=== PATIENT | male | born 1945 | race Caucasian/White ===

== ENCOUNTER 2019-01-14 15:26 | Outpatient (CLI) | payer MEDICARE, SELFPAY ==
--- NOTE | 2019-01-14 11:30 | DI.RAD_ITS ---
SYMPTOMS/DIAGNOSIS: PRODUCTIVE COUGH X 1 MO, WEIGHT LOSS, R63.4 PA AND LATERAL CHEST: The lungs are well expanded and free of infiltrates. There is no pleural effusion. The cardiovascular structures are intact. Note is made of degenerative changes involving the mid and lower dorsal spine. SUMMARY: No evidence of cardiopulmonary disease.
== END 2019-01-14 15:46 ==
PROVIDERS: PCP Nurse Practitioner; Visit Provider Nurse Practitioner
DX: R05 Cough (principal); R63.4 Abnormal weight loss
CPT/HCPCS: 71046

== ENCOUNTER 2019-03-13 03:37 | Outpatient (CLI) | payer MEDICARE, SELFPAY ==
[2019-03-13 10:17] LABS: HCT 43.8 % (40.0-50.0); Mean Corpuscular Hemoglobin 31.4 pg (27.0-33.0); Mean Corpuscular Volume 98.2 fL (80-95); Mean Platelet Volume 9.6 fL (8.0-11.0); Platelet Count 181 x1000/uL (130-400); RBC 4.46 m/cumm (4.50-6.00); RBC Distribution Width 13.3 % (11.8-14.1); White Blood Cell Count 5.05 k/cumm (4.4-10.8)
[2019-03-13 10:30] LABS: COMMENT (LAB VIEW ONLY) 74.42 mg/dL; Microalb ug/mg Crea 4.7 ug/mg Cr
[2019-03-13 11:03] LABS: Hemoglobin A1C 6.4 % (4.5-6.2)
[2019-03-13 11:04] LABS: ALT 24 U/L (12-78); AST 17 U/L (15-37); Albumin 3.4 g/dL (3.4-5.0); Alkaline Phosphatase 53 U/L (46-116); Anion Gap 8.1 mmol/L (3-11); BUN 22 mg/dL (7-18); Bilirubin, Total 0.5 mg/dL (0.2-1.0); CO2 27.9 mmol/L (21.0-32.0); CREATININE 1.03 mg/dL (0.70-1.30); Calcium 8.8 mg/dL (8.5-10.1); Chloride 105 mmol/L (98-107); Cholesterol 135 mg/dL (50-200); Glucose 115 mg/dL (70-100); HDL Cholesterol 47 mg/dL (40-60); LDL CHOLESTEROL 78 mg/dL (<100); Potassium 4.4 mmol/L (3.5-5.1); Sodium 141 mmol/L (136-145); Total Protein 6.3 g/dL (6.4-8.2); Triglyceride 39 mg/dL (30-150)
== END 2019-03-13 03:57 ==
PROVIDERS: PCP Nurse Practitioner; Visit Provider Nurse Practitioner
DX: E11.9 Type 2 diabetes mellitus without complications (principal); E78.00 Pure hypercholesterolemia, unspecified; I10 Essential (primary) hypertension; R73.03 Prediabetes
CPT/HCPCS: 36415; 80053; 80061; 83721; 85027; 82043; 82570; 83036

== ENCOUNTER 2019-12-17 14:44 | Outpatient (CLI) | payer MEDICARE, SELFPAY ==
--- NOTE | 2019-12-17 14:00 | DI.RAD_ITS ---
EXAM: XR KNEE RT 3V AP,LAT,ERNIE INDICATION: PAIN S/P FALL X 2 LANDING ON KNEE, 2 WEEKS AGO, W19.XXXA, PAIN RT KNEE. COMPARISON: No exams were available for comparison TECHNIQUE: 2D digital imaging was performed. FINDINGS: There is marked swelling of the prepatellar soft tissues. No acute or healing fracture or dislocatio n is identified. No joint effusion is present. IMPRESSION: 1. No acute fracture or dislocation. 2. Swelling of the prepatellar soft tissues.
== END 2019-12-17 15:04 ==
PROVIDERS: PCP Nurse Practitioner; Visit Provider Nurse Practitioner
DX: M25.561 Pain in right knee (principal); M79.89 Other specified soft tissue disorders; Z91.81 History of falling
CPT/HCPCS: 73562

== ENCOUNTER 2019-12-28 15:45 | Outpatient (CLI) | payer MEDICARE, SELFPAY ==
--- NOTE | 2019-12-28 15:30 | DI.RAD_ITS ---
EXAM: XR KNEE RT 1V CLINICAL HISTORY: fall with anterior patella swelling and pain TECHNIQUE: COMPARISON: XR KNEE RT 3V AP,LAT,ERNIE from 12/17/2019 FINDINGS: Merchant view only was obtained. The film is of poor technical quality and the cortex of the patella is not well visualized. Repeat film recommended. IMPRESSION:
--- NOTE | 2019-12-28 15:30 | DI.RAD_ITS ---
EXAM: XR TIB/FIB RT CLINICAL HISTORY: right leg swelling and pain TECHNIQUE: COMPARISON: XR KNEE RT 1V from 12/28/2019 FINDINGS: Two views were obtained. No bony abnormality seen involving the leg. IMPRESSION:
== END 2019-12-28 16:05 ==
PROVIDERS: PCP Nurse Practitioner; Referring Provider Nurse Practitioner; Visit Provider Student in an Organized Health Care Education/Training Program
DX: M70.41 Prepatellar bursitis, right knee; M25.461 Effusion, right knee; M79.604 Pain in right leg; R60.0 Localized edema
CPT/HCPCS: 99203; 99214; 73560; 73590

== ENCOUNTER 2020-06-29 03:22 | Outpatient (CLI) | payer MEDICARE, SELFPAY ==
[2020-06-29 08:55] LABS: ALT 37 U/L (16-63); AST 21 U/L (15-37); Albumin 3.8 g/dL (3.4-5.0); Alkaline Phosphatase 53 U/L (46-116); Anion Gap 3.4 mmol/L (3-11); BUN 21 mg/dL (7-18); Bilirubin, Total 0.5 mg/dL (0.2-1.0); CO2 29.6 mmol/L (21.0-32.0); CREATININE 0.99 mg/dL (0.70-1.30); Calculated LDL 89 mg/dL (<100); Chloride 109 mmol/L (98-107); Cholesterol 147 mg/dL (<200); Glucose 112 mg/dL (74-106); HDL Cholesterol 41 mg/dL (40-60); Potassium 4.2 mmol/L (3.5-5.1); Sodium 142 mmol/L (136-145); Total Protein 6.6 g/dL (6.4-8.2); Triglyceride 87 mg/dL (<150)
[2020-06-29 09:00] LABS: Hemoglobin A1C 6.5 % (3.8-5.6)
== END 2020-06-29 03:42 ==
PROVIDERS: PCP Nurse Practitioner; Visit Provider Family Medicine
DX: E11.9 Type 2 diabetes mellitus without complications (principal); I10 Essential (primary) hypertension; E78.5 Hyperlipidemia, unspecified
CPT/HCPCS: 36415; 80053; 80061; 83036

== ENCOUNTER 2021-07-25 10:46 | Outpatient (CLI) | payer MEDICARE, SELFPAY ==
--- NOTE | 2021-07-25 09:45 | DI.RAD_ITS ---
Exam(s) XR SHOULDER LT COMPLETE 2+V EXAM: XR SHOULDER LT COMPLETE 2+V CLINICAL HISTORY: left shoulder pain for about 2 months, M25.512. Full ROM.. TECHNIQUE: 2D digital imaging was performed of the left shoulder. Five images were obtained. AP, G rashey, Y-view and axillary views were obtained. COMPARISON: No exams were available for comparison FINDINGS: BONES: No acute fracture is present. No bony destructive lesion is seen. JOINTS: No dislocation present. Mild hypertrophic changes are seen at the acromioclavicular joint. SOFT TISSUE: Normal. IMPRESSION: Mild degenerative changes of the left shoulder. DATA REPOSITORY: RADIATION DOSE DELIVERED:
== END 2021-07-25 11:06 ==
PROVIDERS: PCP Nurse Practitioner; Visit Provider Nurse Practitioner
DX: M25.512 Pain in left shoulder (principal); M19.012 Primary osteoarthritis, left shoulder
CPT/HCPCS: 73030

== ENCOUNTER 2021-07-27 01:45 | Outpatient (CLI) | payer MEDICARE, SELFPAY ==
[2021-07-27 08:47] LABS: ALT 38 U/L (16-63); AST 23 U/L (15-37); Albumin 3.7 g/dL (3.4-5.0); Alkaline Phosphatase 53 U/L (46-116); Anion Gap 6.8 mmol/L (3-11); BUN 17 mg/dL (7-18); Bilirubin, Total 0.4 mg/dL (0.2-1.0); CO2 29.2 mmol/L (21.0-32.0); CREATININE 1.1 mg/dL (0.70-1.30); Calcium 9.1 mg/dL (8.5-10.1); Calculated LDL 88 mg/dL (<100); Chloride 107 mmol/L (98-107); Cholesterol 143 mg/dL (<200); Glucose 112 mg/dL (74-106); HDL Cholesterol 38 mg/dL (40-60); Potassium 4.7 mmol/L (3.5-5.1); Sodium 143 mmol/L (136-145); Total Protein 6.6 g/dL (6.4-8.2); Triglyceride 85 mg/dL (<150)
[2021-07-27 17:41] LABS: PSA, Screening 4.7 ng/mL (0.0-6.5)
== END 2021-07-27 01:46 | disposition home or self-care (01) ==
LOC: LBO 01:45
PROVIDERS: PCP Nurse Practitioner; Visit Provider Nurse Practitioner
DX: I10 Essential (primary) hypertension (principal); E78.00 Pure hypercholesterolemia, unspecified; E66.3 Overweight; N40.0 Benign prostatic hyperplasia without lower urinary tract symptoms; Z12.5 Encounter for screening for malignant neoplasm of prostate
CPT/HCPCS: 36415; 80053; 80061; 84153

== ENCOUNTER 2022-07-10 02:06 | Outpatient (CLI) | payer MEDICARE, SELFPAY ==
[2022-07-10 08:52] LABS: Abs Immature Grans 0.01 10^3/uL (0.0-0.06); Absolute Basophil Count 0.04 10^3/uL (0.0-0.2); Absolute Eosinophil Count 0.39 10^3/uL (0.0-0.7); Absolute Monocyte Count 0.41 10^3/uL (0.1-0.8); Absolute Neutrophil Count 3.13 10^3/uL (1.2-6.7); Basophils % 0.8; Eosinophils % 7.7; HCT 44.6 % (40.0-50.0); HGB 14.8 g/dL (13.5-17.5); Immature Grans % 0.2; Lymphocytes % 21.7; MCHC 33.2 % (32.0-36.0); MCV 96 fL (80-95); MPV 9.9 fL (8.0-11.0); Monocytes % 8.1; Neutrophils % 61.5; Platelet Count 159 10^3/uL (130-400); RBC 4.63 10^6/uL (4.36-5.78); RDW 12.6 % (11.8-14.1); WBC 5.08 10^3/uL (4.4-10.8)
[2022-07-10 09:04] LABS: Hemoglobin A1C 6.3 % (<5.7)
[2022-07-10 09:27] LABS: ALT 26 U/L (16-63); AST 16 U/L (15-37); Albumin 3.7 g/dL (3.4-5.0); Alkaline Phosphatase 49 U/L (46-116); Anion Gap 7.9 mmol/L (3-11); BUN 22 mg/dL (7-18); Bilirubin, Total 0.4 mg/dL (0.2-1.0); CO2 30.1 mmol/L (21.0-32.0); CREATININE 1.2 mg/dL (0.70-1.30); Calculated LDL 74 mg/dL (<100); Chloride 107 mmol/L (98-107); Cholesterol 132 mg/dL (<200); Estimated GFR 63.46 (mL/min/1.73m2); Glucose 124 mg/dL (74-106); HDL Cholesterol 43 mg/dL (40-60); Potassium 4.5 mmol/L (3.5-5.1); Sodium 145 mmol/L (136-145); Triglyceride 77 mg/dL (<150)
== END 2022-07-10 02:07 | disposition home or self-care (01) ==
LOC: LBO 02:06
PROVIDERS: PCP Nurse Practitioner; Visit Provider Nurse Practitioner
DX: I10 Essential (primary) hypertension (principal); E78.00 Pure hypercholesterolemia, unspecified; R73.03 Prediabetes; J45.909 Unspecified asthma, uncomplicated; E66.3 Overweight
CPT/HCPCS: 36415; 80053; 80061; 83036; 85025

== ENCOUNTER 2022-07-16 09:21 | Emergency (ER) | payer MEDICARE, SELFPAY ==
[2022-07-16 09:25] VITALS: BP 118/78; PULSE 70; RESP 18; TEMP 36.3; O2SAT 97
--- NOTE | 2022-07-16 09:52 | ED.GENADUL_ITS ---
Discharge Plan Disposition Patient Disposition: HOME Condition: Stable Discharge Details Clinical Impression: Nausea vomiting and diarrhea Primary Care Provider: Shana Alvarez ED Provider: Lu Reeves Home Meds and New Rx's Prescriptions: Continued cholecalciferol (vitamin D3) [Vitamin D3] 25 mcg (1,000 unit) capsule 1,000 unit PO DAILY Qty: 100 6RF Rx Instructions: Vitamin D supplement atorvastatin 20 mg tablet 20 mg PO DAILY Qty: 90 3RF metoprolol succinate 100 mg tablet extended release 24 hr 100 mg PO DAILY Qty: 90 3RF aspirin [Aspir-81] 81 MG tablet,delayed release (DR/EC) 81 mg PO DAILY Rx Instructions: due to cardiovascular risk and paroxysmal A Fib omeprazole 20 mg tablet,delayed release (DR/EC) 20 mg PO DAILY PRN (Reason: GERD) Qty: 90 3RF Rx Instructions: for persistant GERD ibuprofen 600 mg tablet 600 mg PO QID PRN (Reason: pain) Qty: 120 3RF tamsulosin 0.4 mg capsule See Rx Instructions .ROUTE .COMPLEX Qty: 90 3RF Dose Instruction: TAKE ONE CAPSULE BY MOUTH EVERY DAY FOR BLADDER SYMPTOMS Rx Instructions: TAKE ONE CAPSULE BY MOUTH EVERY DAY FOR BLADDER SYMPTOMS Discharge Instructions Instructions: Acute Nausea and Vomiting (ED) Additional Instructions: Your symptoms may be associated with some something that you ate or virus. Please continue to encourage hydration. You may advance your diet as tolerated. Please continue to quarantine until your COVID results are back, we will call you with these results as soon as possible. If you develop fever/chills, chest pain, shortness of breath, inability stay hydrated or other new/worsening symptoms please seek care urgently once again. Please keep upcoming appointment with your primary care Referrals: Shana Alvarez, [facility] [Primary Care Provider] - Medical Decision Making Patient is a pleasant 76-year-old male presents today with chief complaint of nausea, vomiting and diarrhea. He reports that he had 2 episodes of emesis and 2 episodes of watery bowel movement yesterday. All of this is nonbloody. Came on after eating pizza. Denies anybody else being sick after eating this. Denies any chest pain, shortness of breath. No fevers or chills. Denies any abdominal pain. No previous bowel surgery. He has not had any nausea or diarrhea today. However, has been hesitant to eat anything as he is afraid that he may have recurrence of his GI upset. Reports that he is very active, with active jaron yesterday and did not have any correlation with his activity, no chest pain. Past medical history is pertinent for hypercholesterolemia, hypertension, prediabetes, paroxysmal atrial fibrillation, GERD. On exam, patient appears nontoxic. Vital signs are stable. Abdomen is benign. Lungs are clear. Patient sounds to be in normal sinus rhythm at this time. Patient's primary concern is potential COVID, particularly at the significant other's vehicle high risk should she contract the illness. However, he does report he is wearing mask, is up-to-date on immunizations. Will complete a send out test. Patient was able to drink water and take his medications this morning. We will send out a COVID test now. We will also p.o. challenge him to ensure he is able to tolerate this. Patient is very active and has no exertional symptoms, I do not believe his nausea and vomiting is associated with ACS. He appears well-hydrated. Is likely associated with something that he ate. He has not had any recent antibiotics. His symptoms overall sound quite low risk and nonemergent. We will ensure that he is able to tolerate p.o. and plan to discharge home. Patient tolerated p.o. challenge well. No recurrent nausea or vomiting. Patient has had no sxs, tolerating PO well now. Send out covid test pending. Encouraged hydration. Discussed supportive care. Discussed supportive care. Advised he continue to quarantine until covid testing is return. All of his quesitons and concerns were addressed, he is in agreement with this plan. Advised f/u with PCP in the next week for reevaluation. All of his quesitons and concerns were addressed, eh is in agreement with this plan. HPI General Date/Time Provider Initiated Documentation: 07/16/22 09:52 . Limitations to Documentation: no limitations . Information obtained by: patient and RN notes reviewed . History of Present Illness 76 year old M presents to the emergency department with the chief complaint of nausea, vomiting, diarrhea, described as moderate, Quality is described as other (denies any pain, only experiences some churning yesterday in abdomen), and is localized to the abdomen. Patient reports no radiation. Patient started experiencing this day(s) (1) and it has been now resolved. No relieving factors improve symptom(s), Eating worsens symptoms (came on afte r eating yestwrday, none today) . Patient notes no other symptoms. and nausea/vomiting; denies chest pain, cough, diaphoresis, fever/chills, malaise and shortness of breath. Patient did receive the following treatments prior to arrival, none Related Data Home Medications Medication Instructions Recorded Confirmed aspirin 81 mg tablet,delayed 81 mg PO DAILY 08/07/16 07/16/22 release (Aspir-) cholecalciferol (vitamin D3) 25 1,000 unit PO DAILY #100 tab-caps 12/17/19 07/16/22 mcg (1,000 unit) capsule (Vitamin D3) atorvastatin 20 mg tablet 20 mg PO DAILY #90 tabs 07/17/21 07/16/22 metoprolol succinate 100 mg 100 mg PO DAILY #90 tabs 07/17/21 07/16/22 tablet,extended release 24 hr omeprazole 20 mg tablet,delayed 20 mg PO DAILY PRN GERD #90 tabs 09/11/21 07/16/22 release ibuprofen 600 mg tablet 600 mg PO QID PRN pain #120 tabs 12/11/21 07/16/22 tamsulosin 0.4 mg capsule See Rx Instructions .Route 01/08/22 07/16/22 .COMPLEX #90 caps Previous Rx's Medication Instructions Recorded cholecalciferol (vitamin D3) 25 1,000 unit PO DAILY #100 tab-caps 12/17/19 mcg (1,000 unit) capsule (Vitamin D3) atorvastatin 20 mg tablet 20 mg PO DAILY #90 tabs 07/17/21 metoprolol succinate 100 mg 100 mg PO DAILY #90 tabs 07/17/21 tablet,extended release 24 hr omeprazole 20 mg tablet,delayed 20 mg PO DAILY PRN GERD #90 tabs 09/11/21 release ibuprofen 600 mg tablet 600 mg PO QID PRN pain #120 tabs 12/11/21 tamsulosin 0.4 mg capsule See Rx Instructions .Route 01/08/22 .COMPLEX #90 caps Allergies Allergy/AdvReac Type Severity Reaction Status Date / Time No Known Allergies Allergy Verified 07/16/22 09:30 General Stated Complaint: Nausea/Vomit/Diar MAYRA: 3 Review of Systems Constitutional Constitutional: Reports as per HPI, Denies chills, Denies fatigue and Denies fever(s) Cardiovascular Cardiovascular: Reports as per HPI, Denies chest pain and Denies dyspnea Respiratory Respiratory: Reports as per HPI, Denies cough and Denies dyspnea Gastrointestinal Gastrointestinal: Reports as per HPI Genitourinary Genitourinary: Denies system reviewed and no additional complaints, except as documented (patient denies any change in urinary habits) Musculoskeletal Musculoskeletal: Reports as per HPI and Denies back pain Integumentary/Breasts Skin/Breast: Reports as per HPI and Denies rash Neurologic Neurologic: Reports as per HPI Endocrine Endocrine: Denies fatigue PFSH All Active Problems (Updated 07/16/22 @ 12:03 by AME Tobias) Nausea vomiting and diarrhea (Acute) Left shoulder pain (Acute) Screening for prostate cancer (Acute) Bursitis, prepatellar, right (Acute) Leg edema, right (Acute) Fall (Acute) Overweight with body mass index (BMI) 25.0-29.9 (Acute 12/25/11) Calculus of left kidney (Acute 07/24/15) Chest pain (Acute 04/08/14) High density lipoprotein (HDL) less than 40 mg/dL (Acute 11/04/08) Elevated cholesterol (Chronic) HTN (hypertension) (Chronic) Prostatism (Acute 10/26/13) slow flow Pre-diabetes (Acute 02/25/18) Paroxysmal atrial fibrillation (Acute 06/04/14) paroxysmal A Fib detected at ETT (neg ischemia); US: diffuse hypo, 40-45%, mild MR; CHADS2-VASC SCORE 1 (09/2014); Holter no A Fib 12/19; ECHO 02/2015 nl EF, no MR; non-sustained VT & no A Fib on CER ( hypertension ([place]ischke) Non-sustained ventricular tachycardia (Acute 10/09/16) ? 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; 09/07/16 Neg colonoscopy Thiago; rpt 10 yr Low HDL (under 40) (Acute 11/04/08) LOW HDL 38; RISK 9% CALCULATED 2008; LDL only 89 (2014) IFG (impaired fasting glucose) (Acute 02/25/18) Hyperlipidemia (Acute 11/04/08) LDL 152 off meds; LOW HDL 38; RISK 9% CALCULATED 2008; Statin begun 07/2014 Hyperkeratotic hand dermatitis (Acute 09/21/14) bilat HYPOTHENAR Generalized osteoarthrosis (Acute 12/25/11) JENISE R KNEE; S/P R HIP REPLACEMENT 2009 [place] Gastroesophageal reflux disease without esophagitis (Acute 10/19/10) EGD 10/19/10 consistent with GERD Overweight with body mass index (BMI) 25.0-29.9 (Acute 12/25/11) BMI 32.0-32.9,adult (Acute 10/09/16) Medical History (Updated 07/16/22 @ 12:03 by AME Tobias) GERD (gastroesophageal reflux disease) Hyperlipidemia Neoplasm of large intestine Obesity Paroxysmal atrial fibrillation Surgical History Colonoscopy - IV Sedation (09/07/16) EGD - MAC (10/19/10) Extraction of cataract (10/04/08) BILATERAL DR MATTA Total replacement of hip (08/23/10) R HIP [place] Family History Mother , CVA at age 84. Myocardial infarction Stroke Parkinson's disease Father , ACCIDENT at age 29. No problems noted. Son Age: 52 Diabetes 44 Son No problems noted. Other Heart disease Social History (Updated 01/17/21 @ 08:42 by Neelam Mccabe LPN) Smoking/Tobacco Use Status: Former Tobacco Use Quit Date: 11/04/76 Pack-years: 50 Tobacco: How many years used: 20 Smoking risk assessment performed?: Yes Alcohol Intake: current Alcohol Intake frequency: a few times a month Drug use: Never Substance use type: does not use Housing: house Number of Children: 2 number of grandchildren: 4 current occupation: retired from factory work and carpentry, and autobody Current gender identity: male What is your relationship status?: Panel score (0-1 are the most socially isolated patients): 0 What type of physical activity do you participate in: none Seatbelt use: always Drive intox or ride w/intox professional driver: No Working smoke detector in home: Yes Fire extinguisher in home: Yes Carbon monox detector in home: Yes Do you feel safe at home: Yes Do you feel safe in your relationship?: Yes Exam Const General: cooperative, healthy appearing, comfortable, no acute distress and well developed Nutritional Appearance: average body habitus and well nourished Orientation: alert and awake [facility] Head: normal to inspection Mouth: moist mucous membranes Resp Effort & Inspection: normal respiratory effort, able to speak in complete sent ences and no respiratory distress Auscultation: clear to auscultation bilaterally, no rales, no rhonchi and no wheezes Cardio Rate: regular rate Rhythm: regular rhythm Heart Sounds: S1 normal and S2 normal GI Inspection: normal to inspection Palpation: soft, no hepatosplenomegaly, no guarding, not rigid, nontender and No ascites Percussion: normal to percussion Skin General skin exam: no rashes or lesions noted Trauma: no lacerations or abrasions Neuro General: patient alert and patient awake Cognition: normal cognition Speech: speech normal Gait: normal gait Psych Appearance: grossly normal and well kempt Mental Status: mental status grossly normal Speech and Movement: speech and movement normal Course Vital Signs Vital signs: Vital Signs Temperature 36.3 C L 07/16/22 09:25 Pulse 70 07/16/22 09:25 Respiratory Rate 18 07/16/22 09:25 Blood Pressure 118/78 07/16/22 09:25 Pulse Oximetry 97 07/16/22 09:25 Temperature 36.3 C L 07/16/22 09:25 Temperature Source Temporal Artery Scan 07/16/22 09:25 Pulse 70 07/16/22 09:25 Respiratory Rate 18 07/16/22 09:25 Respiratory Effort Non-Labored 07/16/22 09:30 Blood Pressure 118/78 07/16/22 09:25 Blood Pressure Position Supine 07/16/22 09:25 Pulse Oximetry 97 07/16/22 09:25 Oxygen Delivery Method Room Air 07/16/22 09:25 Oxygen Flow Rate 0 07/16/22 09:25 PAWSS Have you Been Recently Intoxicated or Drunk Within the Last 30 days?: No Have you Ever Experienced Previous Episodes of Alcohol Withdrawal?: No Have you ever Experienced Withdrawal Seizures?: No Have you ever Experienced Delirium Tremens(DT)s?: No Have you ever undergone Alcohol Rehabilitation Treatment (i.e, inpt ot outpatient treatment programs)?: No Have you ever Experienced Blackouts?: No Have you ever Combined Alcohol with other Downers within the last 90 days?: No Have you ever Combined Alcohol with any other Substance of Abuse during the last 90 days?: No Positive Blood Alcohol level on Presentation? [PCS.BAL]: No Evidence of Increased Autonomic Activity (i.e. HR>120, tremor, sweating, agitation, nausea)?: No Result: 0
[2022-07-18 11:28] LABS: COVID-19 RT-PCR UVMMC Result Negative (Negative)
--- NOTE | 2022-07-18 13:35 | NUR.NOTE ---
patient made aware of negative covid results.
--- NOTE | 2022-07-18 17:49 | NUR.NOTE ---
Nursing Note: Patient called at this time asking if the ED called and gave him his COVID results today. His phone showed all 0's for the phone number and he was worried that it was a scam. I reassured him after reviewing the note that it was not a scam and that we indeed did call him with his results.
== END 2022-07-16 12:27 | disposition home or self-care (01) ==
PROVIDERS: Emergency Provider Physician Assistant; PCP Nurse Practitioner
DX: R11.2 Nausea with vomiting, unspecified (principal); R19.7 Diarrhea, unspecified; I10 Essential (primary) hypertension; I48.91 Unspecified atrial fibrillation; Z79.82 Long term (current) use of aspirin; Z87.891 Personal history of nicotine dependence; Z20.822 Contact with and (suspected) exposure to COVID-19
CPT/HCPCS: 99282; U0003

== ENCOUNTER 2022-08-24 01:43 | Outpatient (CLI) | payer MEDICARE, SELFPAY ==
[2022-08-24 18:52] LABS: PSA, Screening 6.2 ng/mL (<=6.5)
== END 2022-08-24 01:44 | disposition home or self-care (01) ==
LOC: LBO 01:43
PROVIDERS: PCP Nurse Practitioner; Visit Provider Nurse Practitioner
DX: N40.0 Benign prostatic hyperplasia without lower urinary tract symptoms (principal); Z12.5 Encounter for screening for malignant neoplasm of prostate
CPT/HCPCS: 36415; 84153

== ENCOUNTER → 2022-09-06 08:44 | Outpatient (BNVA) | payer MEDICARE, SELFPAY | PROVIDERS: PCP Nurse Practitioner; Referring Provider Nurse Practitioner; Visit Provider Nurse Practitioner Gerontology | DX: R39.12 Poor urinary stream (principal); R97.20 Elevated prostate specific antigen [PSA] | CPT/HCPCS: 51798; 81003; 99215 ==

== ENCOUNTER 2022-10-04 09:27 | Emergency (ER) | payer MEDICARE, SELFPAY ==
[2022-10-04 09:45] VITALS: BP 139/101; PULSE 72; RESP 18; TEMP 36.8; O2SAT 96
[2022-10-04 10:08] VITALS: RESP 18
--- NOTE | 2022-10-04 10:49 | W.ED.GENAD ---
Discharge Plan Disposition Patient Disposition: Home Condition: Stable Discharge Details Clinical Impression: COVID Primary Care Provider: Shana Alvarez ED Provider: Antonino Adames Home Meds and New Rx's Prescriptions: Continued cholecalciferol (vitamin D3) [Vitamin D3] 25 mcg (1,000 unit) capsule 1,000 unit PO DAILY Qty: 100 6RF Rx Instructions: Vitamin D supplement metoprolol succinate 100 mg tablet extended release 24 hr 100 mg PO DAILY Qty: 90 3RF omeprazole 20 mg tablet,delayed release (DR/EC) 20 mg PO DAILY PRN (Reason: GERD) Qty: 90 3RF Rx Instructions: for persistant GERD aspirin [Aspir-81] 81 MG tablet,delayed release (DR/EC) 81 mg PO DAILY Rx Instructions: due to cardiovascular risk and paroxysmal A Fib ibuprofen 600 mg tablet 600 mg PO QID PRN (Reason: pain) Qty: 120 3RF tamsulosin 0.4 mg capsule See Rx Instructions .ROUTE .COMPLEX Qty: 90 3RF Dose Instruction: TAKE ONE CAPSULE BY MOUTH EVERY DAY FOR BLADDER SYMPTOMS Rx Instructions: TAKE ONE CAPSULE BY MOUTH EVERY DAY FOR BLADDER SYMPTOMS atorvastatin 20 mg tablet 20 mg PO DAILY Qty: 90 3RF Discharge Instructions Instructions: COVID-19 (Coronavirus Disease 2019) (ED) Additional Instructions: During viral illness please stay well-hydrated and allow for plenty of rest. If you develop any new or significant worsening of symptoms such as chest pain, shortness of breath, difficulty breathing, or return of your fever return to the emergency department for reassessment. Otherwise if not fully improving over the next week please follow with your primary care provider as needed for reassessment. Referrals: Shana Alvarez NP [Primary Care Provider] - Discharge Data Discharge Date/Time-TO BE ENTERED AT DEPARTURE: 10/04/22 11:51 Medical Decision Making Patient presenting to the emergency department for chief complaint of cold symptoms. Patient started feeling ill on Saturday with nasal congestion, postnasal drip, cough, fever and chills with mild sore throat. Patient does state that he did take a home COVID test that was positive. Patient has history of hypertension, hyperlipidemia, paroxysmal A. fib arthritis and GERD. Patient does state that he has been vaccinated and boosted for COVID but did not receive his vaccine this fall. Physical exam is unremarkable shows no hypoxia, tachycardia, clear lung sounds, and mild erythema to posterior pharynx but otherwise unremarkable HEENT exam. Prior to me seeing patient fluid was ordered which I feel is appropriate. Patient is outside the window for antiviral therapy but did discuss monoclonal antibodies. Patient does state that he is showing signs of improvement today which I feel is reassuring. Due to this we will hold off on giving monoclonal antibodies after discussion with patient of risk first benefit. Discussed conservative management of symptoms with patient along with return and follow-up precautions. After discussion of diagnosis and plan of care patient has no further needs, questions, or concerns and states clear understanding to return to the emergency department for any worsening symptoms. This documentation was generated using [employer] dictation system, please disregard any oddities of phrase or misspellings. Sign Out No HPI General Mode of arrival: ambulatory. Date/Time Provider Initiated Documentation: 10/04/22 09:50. Limitations to Documentation: no limitations. Information obtained by: patient and RN notes reviewed. History of Present Illness 76 year old M presents to the emergency department with the chief complaint of cough and cold symptoms, described as moderate, Quality is described as aching, Patient started experiencing this day(s) (5) and it has been constant. Medication improves symptom(s), No exacerbating factors reported . Patient notes cough, fever/chills and malaise; denies chest pain and shortness of breath. Patient did receive the following treatments prior to arrival, other (Benadryl and [id number] cough syrup) Related Data Home Medications Medication Instructions Recorded Confirmed aspirin 81 mg tablet,delayed 81 mg PO DAILY 08/07/16 10/04/22 release (Aspir-) cholecalciferol (vitamin D3) 25 1,000 unit PO DAILY #100 tab-caps 12/17/19 10/04/22 mcg (1,000 unit) capsule (Vitamin D3) ibuprofen 600 mg tablet 600 mg PO QID PRN pain #120 tabs 12/11/21 10/04/22 tamsulosin 0.4 mg capsule See Rx Instructions .Route 01/08/22 10/04/22 .COMPLEX #90 caps metoprolol succinate 100 mg 100 mg PO DAILY #90 tabs 08/20/22 10/04/22 tablet,extended release 24 hr omeprazole 20 mg tablet,delayed 20 mg PO DAILY PRN GERD #90 tabs 08/20/22 10/04/22 release atorvastatin 20 mg tablet 20 mg PO DAILY #90 tabs 08/27/22 10/04/22 Previous Rx's Medication Instructions Recorded cholecalciferol (vitamin D3) 25 1,000 unit PO DAILY #100 tab-caps 12/17/19 mcg (1,000 unit) capsule (Vitamin D3) ibuprofen 600 mg tablet 600 mg PO QID PRN pain #120 tabs 12/11/21 tamsulosin 0.4 mg capsule See Rx Instructions .Route 01/08/22 .COMPLEX #90 caps metoprolol succinate 100 mg 100 mg PO DAILY #90 tabs 08/20/22 tablet,extended release 24 hr omeprazole 20 mg tablet,delayed 20 mg PO DAILY PRN GERD #90 tabs 08/20/22 release atorvastatin 20 mg tablet 20 mg PO DAILY #90 tabs 08/27/22 Allergies Allergy/AdvReac Type Severity Reaction Status Date / Time No Known Allergies Allergy Verified 09/06/22 08:54 General Stated Complaint: GenMedical MAYRA: 3 Review of Systems Constitutional Constitutional: Reports chills, Reports fatigue, Reports fever(s), Denies headache(s) and Reports lethargy Eyes Eyes: Denies eye discharge ENT Ears, Nose, Mouth, and Throat: Denies headache(s), Reports nasal congestion, Reports nasal discharge, Denies neck pain, Reports post nasal drip, Reports sinus pressure and Denies throat swelling Cardiovascular Cardiovascular: Denies chest pain and Denies dyspnea Respiratory Respiratory: Reports cough, Denies dyspnea and Denies wheezing Gastrointestinal Gastrointestinal: Denies abdominal pain, Denies nausea and Denies vomiting Musculoskeletal Musculoskeletal: Denies joint swelling and Denies neck pain Integumentary/Breasts Skin/Breast: Denies rash Neurologic Neurologic: Denies headache(s) Endocrine Endocrine: Reports fatigue Allergic/Immunologic Allergic/Immunologic: Denies throat swelling and Denies wheezing PFSH All Active Problems (Updated 10/04/22 @ 11:06 by Antonino Adames NP) COVID (Acute) Elevated PSA (Acute) Left shoulder pain (Acute) Screening for prostate cancer (Acute) Bursitis, prepatellar, right (Acute) Leg edema, right (Acute) Fall (Acute) Overweight with body mass index (BMI) 25.0-29.9 (Acute 12/25/11) Calculus of left kidney (Acute 07/24/15) Chest pain (Acute 04/08/14) High density lipoprotein (HDL) less than 40 mg/dL (Acute 11/04/08) Elevated cholesterol (Chronic) HTN (hypertension) (Chronic) Prostatism (Acute 10/26/13) slow flow Pre-diabetes (Acute 02/25/18) Paroxysmal atrial fibrillation (Acute 06/04/14) paroxysmal A Fib detected at ETT (neg ischemia); US: diffuse hypo, 40-45%, mild MR; CHADS2-VASC SCORE 1 (09/2014); Holter no A Fib 12/19; ECHO 02/2015 nl EF, no MR; non-sustained VT & no A Fib on CER ( hypertension (Lischke) Non-sustained ventricular tachycardia (Acute 10/09/16) ? 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; 09/07/16 Neg colonoscopy Das; rpt 10 yr Low HDL (under 40) (Acute 11/04/08) LOW HDL 38; RISK 9% CALCULATED 2008; LDL only 89 (2014) IFG (impaired fasting glucose) (Acute 02/25/18) Hyperlipidemia (Acute 11/04/08) LDL 152 off meds; LOW HDL 38; RISK 9% CALCULATED 2008; Statin begun 07/2014 Hyperkeratotic hand dermatitis (Acute 09/21/14) bilat HYPOTHENAR Generalized osteoarthrosis (Acute 12/25/11) JENISE R KNEE; S/P R HIP REPLACEMENT 2009 JOYCELYN Gastroesophageal reflux disease without esophagitis (Acute 10/19/10) EGD 10/19/10 consistent with GERD Overweight with body mass index (BMI) 25.0-29.9 (Acute 12/25/11) BMI 32.0-32.9,adult (Acute 10/09/16) Medical History (Updated 10/04/22 @ 11:06 by Antonino Adames NP) GERD (gastroesophageal reflux disease) Hyperlipidemia Neoplasm of large intestine Obesity Paroxysmal atrial fibrillation Surgical History Colonoscopy - IV Sedation (09/07/16) EGD - MAC (12/16/10) Extraction of cataract (10/04/08) BILATERAL DR MATTA Total replacement of hip (08/23/10) R HIP LIBBYISBACH Family History Mother , CVA at age 84. Myocardial infarction Stroke Parkinson's disease Father , ACCIDENT at age 29. No problems noted. Son Age: 52 Diabetes 44 Son No problems noted. 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 [employer] Current gender identity: male What is your relationship status?: Panel score (0-1 are the most socially isolated patients): 0 What type of physical activity do you participate in: none Seatbelt use: always Drive intox or ride w/intox warehouse delivery driver: No Working smoke detector in home: Yes Fire extinguisher in home: Yes Carbon monox detector in home: Yes Do you feel safe at home: Yes Do you feel safe in your relationship?: Yes Exam Const General: cooperative, comfortable and no acute distress Orientation: alert and awake [facility] Head: normal to inspection, normocephalic and atraumatic Ears: hearing grossly normal bilaterally and TM's normal bilaterally General nose exam: external nose normal Face and sinus: no erythema Mouth: oral mucosae normal, no drooling, no muffled voice and no trismus Throat: posterior oropharynx normal Neck Neck: normal visual inspection, full ROM, no lymphadenopathy, no meningeal signs, trachea midline and supple Resp Effort & Inspection: normal respiratory effort, able to speak in complete sentences and cough Quality of cough: dry Auscultation: clear to auscultation bilaterally Cardio Rate: regular rate Rhythm: regular rhythm Heart Sounds: S1 normal, S2 normal, normal S1 and S2, no click, no gallops, no murmurs and no rubs Skin General skin exam: no rashes or lesions noted and dry skin (warm) Neuro General: patient alert, patient awake, patient oriented x3, gait normal and moves all extremities Cognition: normal cognition Speech: speech normal Course Vital Signs Vital signs: Vital Signs Temperature 36.8 C 10/04/22 09:45 Pulse 72 10/04/22 09:45 Respiratory Rate 18 10/04/22 09:45 Blood Pressure 139/101 H 10/04/22 09:45 Pulse Oximetry 96 10/04/22 09:45 Temperature 36.8 C 10/04/22 09:45 Temperature Source Temporal Artery Scan 10/04/22 09:45 Pulse 72 10/04/22 09:45 Respiratory Rate 18 10/04/22 10:08 Respiratory Effort Non-Labored 10/04/22 10:08 Respiratory Depth Normal 10/04/22 10:08 Respiratory Pattern Normal 10/04/22 10:08 Blood Pressure 139/101 H 10/04/22 09:45 Pulse Oximetry 96 10/04/22 09:45 PAWSS Have you Been Recently Intoxicated or Drunk Within the Last 30 days?: No Have you Ever Experienced Previous Episodes of Alcohol Withdrawal?: No Have you ever Experienced Withdrawal Seizures?: No Have you ever Experienced Delirium Tremens(DT)s?: No Have you ever undergone Alcohol Rehabilitation Treatment (i.e, inpt ot outpatient treatment programs)?: No Have you ever Experienced Blackouts?: No Have you ever Combined Alcohol with other Downers within the last 90 days?: No Have you ever Combined Alcohol with any other Substance of Abuse during the last 90 days?: No Positive Blood Alcohol level on Presentation? [PCS.BAL]: No Evidence of Increased Autonomic Activity (i.e. HR>120, tremor, sweating, agitation, nausea)?: No Result: 0
[2022-10-04 10:56] LABS: Influenza A PCR Negative (Negative); Influenza B PCR Negative (Negative); RSV PCR Negative (Negative)
[2022-10-04 10:59] LABS: Source Nasopharynx
[2022-10-04 11:01] LABS: COVID-19 PCR Positive (Negative)
== END 2022-10-04 11:51 | disposition home or self-care (01) ==
PROVIDERS: Emergency Medicine; Emergency Provider Nurse Practitioner Family; PCP Nurse Practitioner
DX: U07.1 COVID-19 (principal)
CPT/HCPCS: 87637; 99281; 99283

== ENCOUNTER 2022-11-29 02:23 | Outpatient (CLI) | payer MEDICARE, SELFPAY ==
[2022-11-29 19:25] LABS: PSA, Diagnostic 6.6 ng/mL (<=6.5)
== END 2022-11-29 02:24 | disposition home or self-care (01) ==
LOC: LBO 02:23
PROVIDERS: PCP Nurse Practitioner; Visit Provider Nurse Practitioner Gerontology
DX: R97.20 Elevated prostate specific antigen [PSA] (principal)
CPT/HCPCS: 36415; 84153

== ENCOUNTER → 2022-12-05 10:28 | Outpatient (BNVA) | payer MEDICARE, SELFPAY | PROVIDERS: PCP Nurse Practitioner; Referring Provider Nurse Practitioner; Visit Provider Nurse Practitioner Gerontology | DX: R39.89 Other symptoms and signs involving the genitourinary system (principal); R97.20 Elevated prostate specific antigen [PSA] | CPT/HCPCS: 36415; 51798; 81003; 99214 ==

== ENCOUNTER 2022-12-05 11:34 | Outpatient (REF) | payer MEDICARE, SELFPAY ==
[2022-12-05 12:25] LABS: CREATININE 1.1 mg/dL (0.70-1.30); Estimated GFR 70.01 (mL/min/1.73m2)
== END 2022-12-05 11:35 | disposition home or self-care (01) ==
LOC: LBN 11:34
PROVIDERS: PCP Nurse Practitioner; Visit Provider Nurse Practitioner Gerontology
DX: R97.20 Elevated prostate specific antigen [PSA] (principal)
CPT/HCPCS: 82565

== ENCOUNTER → 2023-01-29 08:55 | Outpatient (BNVA) | payer MEDICARE, SELFPAY | PROVIDERS: PCP Nurse Practitioner; Referring Provider Nurse Practitioner; Visit Provider Nurse Practitioner Gerontology | DX: R97.20 Elevated prostate specific antigen [PSA] (principal) | CPT/HCPCS: 99214 ==

== ENCOUNTER 2023-09-24 02:58 | Outpatient (CLI) | payer MEDICARE, SELFPAY ==
[2023-09-24 08:31] LABS: Abs Immature Grans 0.01 10^3/uL (0.0-0.06); Absolute Basophil Count 0.04 10^3/uL (0.0-0.2); Absolute Eosinophil Count 0.26 10^3/uL (0.0-0.7); Absolute Lymphocyte Count 1.05 10^3/uL (1.2-3.4); Absolute Monocyte Count 0.39 10^3/uL (0.1-0.8); Absolute Neutrophil Count 3.51 10^3/uL (1.2-6.7); Basophils % 0.8; Eosinophils % 4.9; HCT 46.9 % (40.0-50.0); HGB 15.3 g/dL (13.5-17.5); Immature Grans % 0.2; MCH 31.9 pg (27.0-33.0); MCHC 32.6 % (32.0-36.0); MCV 98 fL (80-95); MPV 9.1 fL (8.0-11.0); Monocytes % 7.4; Neutrophils % 66.7; Platelet Count 165 10^3/uL (130-400); RDW 12.3 % (11.8-14.1); RDW-SD 44.8 fL; WBC 5.26 10^3/uL (4.4-10.8)
[2023-09-24 08:46] LABS: Hemoglobin A1C 6.6 % (<5.7)
[2023-09-24 09:17] LABS: ALT 26 U/L (16-63); AST 19 U/L (15-37); Albumin 3.5 g/dL (3.4-5.0); Alkaline Phosphatase 55 U/L (46-116); BUN 24 mg/dL (7-18); Bilirubin, Total 0.5 mg/dL (0.2-1.0); CREATININE 1.2 mg/dL (0.70-1.30); Calcium 9.4 mg/dL (8.5-10.1); Calculated LDL 71 mg/dL (<100); Chloride 106 mmol/L (98-107); Cholesterol 125 mg/dL (<200); Estimated GFR 63.07 (mL/min/1.73m2); Glucose 144 mg/dL (74-106); HDL Cholesterol 43 mg/dL (40-60); Potassium 4.6 mmol/L (3.5-5.1); Sodium 141 mmol/L (136-145); Total Protein 6.8 g/dL (6.4-8.2); Triglyceride 59 mg/dL (<150)
== END 2023-09-24 02:59 | disposition home or self-care (01) ==
LOC: LBO 02:58
PROVIDERS: PCP Nurse Practitioner; Referring Provider Nurse Practitioner; Visit Provider Nurse Practitioner
DX: E78.5 Hyperlipidemia, unspecified (principal); I10 Essential (primary) hypertension; R73.03 Prediabetes
CPT/HCPCS: 36415; 80053; 80061; 83036; 85025

== ENCOUNTER 2025-08-10 01:33 | Outpatient (CLI) | payer MEDICARE, SELFPAY ==
[2025-08-10 10:01] LABS: ALT 30 U/L (16-63); AST 20 U/L (15-37); Albumin 3.6 g/dL (3.4-5.0); Alkaline Phosphatase 64 U/L (46-116); Anion Gap 7.8 mmol/L (3-11); BUN 22 mg/dL (7-18); Bilirubin, Total 0.7 mg/dL (0.2-1.0); CO2 30.2 mmol/L (21.0-32.0); Calcium 9.0 mg/dL (8.5-10.1); Calculated LDL 77 mg/dL (<100); Chloride 105 mmol/L (98-107); Cholesterol 131 mg/dL (<200); Estimated GFR 77.52 (mL/min/1.73m2); Glucose 118 mg/dL (74-106); HDL Cholesterol 41 mg/dL (>or=40); Potassium 4.2 mmol/L (3.5-5.1); Sodium 143 mmol/L (136-145); Total Protein 6.7 g/dL (6.4-8.2); Triglyceride 65 mg/dL (<150)
== END 2025-08-10 01:34 | disposition home or self-care (01) ==
LOC: LBO 01:33
PROVIDERS: PCP Nurse Practitioner; Visit Provider Nurse Practitioner
DX: E11.9 Type 2 diabetes mellitus without complications (principal); I10 Essential (primary) hypertension; E78.5 Hyperlipidemia, unspecified
CPT/HCPCS: 36415; 80053; 80061